=== PATIENT | male | born 1975 | race Caucasian/White ===

== ENCOUNTER 2020-11-11 00:14 | Emergency (ER) | payer SELFPAY ==
[~2020-11-11] VITALS: Ht 177 cm; Wt 91.0 kg
[2020-11-11] MEDS ORDERED: morphine INJ 10 MG/ML 1ML (SYR OR VIAL) IVP STA (00:53)
--- NOTE | 2020-11-11 00:59 | ED GU-Male ---
General Chief Complaint: - Urinary Stated Complaint: SCROTUM SWELLING/PAIN X 3-4 DAYS Nursing Triage Note: PT TO ED W/ C/O SCROTAL ET PENIS SWELLING ONSET X3 DAYS. PT REPORTS HE IS UNABLE TO PULL THE FORESKIN BACK ON HIS PENIS AT THIS TIME. WAS SEEN AT [facility] X2-3 DAYS AGO FOR CONSTIPATION OVER THE LAST MONTH. STATES WAS DX W/ ANAL FISSURES, PRESCRIBED PAIN MEDS, ABX ET SUPPOSITORIES. Source: patient, family Exam Limitations: no limitations History of Present Illness Date Seen by Provider: Nov 11, 2020 Time Seen by Provider: 00:42 Initial Comments Patient is a 45-year-old male who presents to the emergency department today with a chief complaint of increasing scrotal swelling and pain. Patient reports that he has been fighting constipation for about a month to a month and a half and was seen at [facility] in [place] 2-3 nights ago. He was diagnosed with anal fissures and did have a scrotal ultrasound that night. He was prescribed some antibiotics. He is advised to take [id number] MiraLAX for his constipation. Patient states that it has been for 5 days since he has had a bowel movement still and it hurts to have a bowel movement. Patient states that he has had difficulty urinating over the course of the last couple of days and the scrotum is significantly more swollen and red and painful today. He states that he feels like he has been running fever. He is a diabetic on insulin. He states he has been on insulin for about the last 4 years. He does not check his blood sugars at home. Patient states that he has been taking the pain medicine without any relief of symptoms. All other review of systems reviewed and negative except as stated above. Timing/Duration: week, getting worse Severity/Quality: severe, aching Location: scrotal Radiation: none Activities at Onset: none Modifying Factors: Improves With Analgesics; Worsens With Movement Associated Symptoms: nausea/vomiting Allergies and Home Medications Allergies Coded Allergies: No Known Drug Allergies (Unverified , 11/11/20) Patient Home Medication List Home Medication List Reviewed: Yes Review of Systems Review of Systems Constitutional: see HPI, chills, fever (Subjective) EENTM: no symptoms reported Respiratory: no symptoms reported Cardiovascular: no symptoms reported Gastrointestinal: no symptoms reported Genitourinary: pain, urgency, other (Scrotal swelling and erythema) Musculoskeletal: no symptoms reported Skin: no symptoms reported Psychiatric/Neurological: Anxiety All Other Systemes Reviewed Negative Unless Noted: Yes Past Rjmbfaj-Iyrysu-Kwxivo Hx Patient Social History Alcohol Use: Regular Use Alcohol Beverage of Choice: Beer Drug of Choice: METH Smoking Status: Current Everyday Smoker Type Used: Cigarettes Recent Infectious Disease Expo: No Physical Exam Vital Signs Vital Signs - First Documented 11/11/20 00:34 Temp 36.8 Pulse 114 Resp 20 B/P (MAP) 143/95 (111) Pulse Ox 98 O2 Delivery Room Air Capillary Refill : Less Than 3 Seconds Height, Weight, BMI Height: '" Weight: lbs. oz. kg; 29.00 BMI Method: General Appearance: WD/WN, mild distress HEENT: PERRL/EOMI Neck: full range of motion Cardiovascular: regular rate, rhythm Respiratory: lungs clear, normal breath sounds, no respiratory distress, no accessory muscle use Gastrointestinal: non tender, soft Rectal: deferred Male: other (Patient has significant scrotal swelling and edema and is very exquisitly tender to palpation; erythema does not extend into the perineum. There are no sores on the genitalia. Patient is circumcised. No penile discharge is noted I am unable to palpate the testicles independently of the swelling in the scrotum) Extremities: non-tender, normal inspection, no pedal edema Neurologic/Psychiatric: alert, normal mood/affect, oriented x 3 Skin: normal color, warm/dry Focused Exam Lactate Level 11/11/20 01:00: Lactic Acid Level 2.50*H Lactic Acid Level Laboratory Tests Test 11/11/20 01:00 Lactic Acid Level 2.50 MMOL/L (0.50-2.00) *H Progress/Results/Core Measures Suspected Sepsis Recent Fever Within 48 Hours: No Infection Criteria Present: None New/Unexplained Altered Menta: No Sepsis Screen: No Definite Risk SIRS Temperature: Pulse: 114 Respiratory Rate: 20 Laboratory Tests 11/11/20 01:00: White Blood Count 12.5H Blood Pressure 143 /95 Mean: 111 11/11/20 01:00: Lactic Acid Level 2.50*H Laboratory Tests 11/11/20 01:00: Creatinine 1.06, INR Comment 1.1, Platelet Count 386, Total Bilirubin 0.3 Results/Orders Lab Results Laboratory Tests Test 11/11/20 00:20 11/11/20 01:00 Range/Units Urine Color YELLOW Urine Clarity CLEAR Urine pH 5.5 5-9 Urine Specific [place] <=1.005 1.016-1.022 Urine Protein NEGATIVE NEGATIVE Urine Glucose (UA) 3+ H NEGATIVE Urine Ketones NEGATIVE NEGATIVE Urine Nitrite NEGATIVE NEGATIVE Urine Bilirubin NEGATIVE NEGATIVE Urine Urobilinogen 0.2 < = 1.0 MG/DL Urine Leukocyte Esterase TRACE H NEGATIVE Urine RBC (Auto) TRACE-I NEGATIVE Urine RBC 5-10 H /HPF Urine WBC 25-50 H /HPF Urine Squamous Epithelial Cells 2-5 /HPF Urine Crystals NONE /LPF Urine Bacteria TRACE /HPF Urine Casts NONE /LPF Urine Mucus NEGATIVE /LPF Urine Culture Indicated YES White Blood Count 12.5 H 4.3-11.0 10^3/uL Red Blood Count 4.57 4.30-5.52 10^6/uL Hemoglobin 14.6 13.3-17.7 g/dL Hematocrit 42 40-54 % Mean Corpuscular Volume 92 80-99 fL Mean Corpuscular Hemoglobin 32 25-34 pg Mean Corpuscular Hemoglobin Concent 35 32-36 g/dL Red Cell Distribution Width 12.6 10.0-14.5 % Platelet Count 386 130-400 10^3/uL Mean Platelet Volume 10.3 9.0-12.2 fL Immature Granulocyte % (Auto) 3 % Neutrophils (%) (Auto) 73 42-75 % Lymphocytes (%) (Auto) 14 12-44 % Monocytes (%) (Auto) 10 0-12 % Eosinophils (%) (Auto) 0 0-10 % Basophils (%) (Auto) 1 0-10 % Neutrophils # (Auto) 9.1 H 1.8-7.8 10^3/uL Lymphocytes # (Auto) 1.7 1.0-4.0 10^3/uL Monocytes # (Auto) 1.2 H 0.0-1.0 10^3/uL Eosinophils # (Auto) 0.0 0.0-0.3 10^3/uL Basophils # (Auto) 0.1 0.0-0.1 10^3/uL Immature Granulocyte # (Auto) 0.3 H 0.0-0.1 10^3/uL Prothrombin Time 14.4 12.2-14.7 SEC INR Comment 1.1 0.8-1.4 Activated Partial Thromboplast Time 31 24-35 SEC Sodium Level 130 L 135-145 MMOL/L Potassium Level 4.3 3.6-5.0 MMOL/L Chloride Level 95 L 98-107 MMOL/L Carbon Dioxide Level 21 21-32 MMOL/L Anion Gap 14 5-14 MMOL/L Blood Urea Nitrogen 10 7-18 MG/DL Creatinine 1.06 0.60-1.30 MG/DL Estimat Glomerular Filtration Rate > 60 BUN/Creatinine Ratio 9 Glucose Level 511 *H 70-105 MG/DL Lactic Acid Level 2.50 *H 0.50-2.00 MMOL/L Calcium Level 9.1 8.5-10.1 MG/DL Corrected Calcium 9.5 8.5-10.1 MG/DL Total Bilirubin 0.3 0.1-1.0 MG/DL Aspartate Amino Transf (AST/SGOT) 44 H 5-34 U/L Alanine Aminotransferase (ALT/SGPT) 87 H 0-55 U/L Alkaline Phosphatase 135 40-136 U/L C-Reactive Protein High Sensitivity 13.77 H 0.00-0.50 MG/DL Total Protein 7.4 6.4-8.2 GM/DL Albumin 3.5 3.2-4.5 GM/DL My Orders Orders - OBED COSTA MD Cbc With Automated Diff (11/11/20 00:53) Comprehensive Metabolic Panel (11/11/20 00:53) Blood Culture (11/11/20 00:53) Urinalysis (11/11/20 00:53) Urine Culture (11/11/20 00:53) Protime With Inr (11/11/20 00:53) Partial Thromboplastin Time (11/11/20 00:53) Ed Iv/Invasive Line Start (11/11/20 00:53) Ed Iv/Invasive Line Start (11/11/20 00:53) Vital Signs Adult Sepsis Patie Q15M (11/11/20 00:53) O2 (11/11/20 00:53) Remove Rings In Anticipation O (11/11/20 00:53) Lactic Acid Analyzer (11/11/20 00:53) Hs C Reactive Protein (11/11/20 00:53) Lorazepam Injection (Ativan Injection) (11/11/20 01:00) Morphine Injection (Morphine Injection (11/11/20 00:53) Ns Iv 1000 Ml (Sodium Chloride 0.9%) (11/11/20 01:00) Ct Abdomen/Pelvis W (11/11/20 00:59) Nicotine Patch (Nicoderm Patch) (11/11/20 01:15) Neis Louis Dna Urine Test (11/11/20 01:15) Chlamydia Trachomatis Urine (11/11/20 01:15) Iohexol Injection (Omnipaque 350 Mg/Ml 1 (11/11/20 02:15) Received Contrast (Hold Metformin- Contr (11/11/20 02:15) Sodium Chloride Flush (Catheter Flush Sy (11/11/20 02:15) Ns (Ivpb) (Sodium Chloride 0.9% Ivpb Bag (11/11/20 02:15) Ceftriaxone (Rocephin) (11/11/20 03:15) Medications Given in ED Current Medications Medications Dose Ordered Sig/Leigh Route Start Time Stop Time Status Last Admin Dose Admin Iohexol 100 ml ONCE ONCE IV 11/11/20 02:15 11/11/20 02:16 DC 11/11/20 02:03 100 ML Lorazepam 1 mg ONCE ONCE IVP 11/11/20 01:00 11/11/20 01:01 DC 11/11/20 01:14 1 MG Nicotine 21 mg ONCE ONCE TD 11/11/20 01:15 11/11/20 01:16 DC 11/11/20 01:29 21 MG Sodium Chloride 10 ml NEEDED PRN IV 11/11/20 02:15 11/11/20 02:04 10 ML Sodium Chloride 100 ml ONCE ONCE IV 11/11/20 02:15 11/11/20 02:16 DC 11/11/20 02:04 80 ML Vital Signs/I&O 11/11/20 00:34 Temp 36.8 Pulse 114 Resp 20 B/P (MAP) 143/95 (111) Pulse Ox 98 O2 Delivery Room Air Capillary Refill : Less Than 3 Seconds Blood Pressure Mean: 111 Progress Note : Time: 03:13 Progress Note I had a long discussion with Johnny regarding the infection and inflammation in his scrotum. I advised him that his CT showed no evidence of drainable abscess in the scrotum. He has "moderate diffuse scrotal swelling which could be further evaluated by ultrasound if clinically warranted" according to the radiologist. I was able to obtain records from [facility] at [place] which showed evidence of orchitis and epididymitis. Patient was treated with Rocephin and azithromycin in the emergency department at [facility]. He was also given doxycycline. Patient has significantly elevated blood sugar and elevated lactic acid and adamantly declines admission at this time. He has been treated in the emergency department with a liter of normal saline. His vitals are stable. He is not tachycardic. CT scan is reassuring. I do not believe that he needs another repeat ultrasound. His ultrasound on 11/08/20 showed no evidence of torsion and good vascular flow. Showed right-sided epididymal orchitis, bilateral hydroceles right greater than left and a 9 mm right epididymal cyst. I did convey to the patient that infections in the scrotum and groin in diabetics can proceed very quickly to life-threatening infections. I am going to give the patient another round of Rocephin here in the emergency department this time 1 g. I have advised that he follow-up tomorrow with [facility]. I am going to start him on Keflex as an outpatient. I have given him good return precautions. He again adamantly declines admission. I suspect this is due to his ongoing tobacco use and his methamphetamine addiction. I told him that I do not believe it is shepard to sign out however the patient does not want to stay in the hospital. Departure Impression Primary Impression: Epididymo-orchitis without abscess Additional Impressions: Hyperglycemia due to type 1 diabetes mellitus Elevated lactic acid level Disposition: 01 HOME, SELF-CARE Condition: Stable Departure-Patient Inst. Decision time for Depature: 03:34 Referrals: [facility],LOCAL PHYSICIAN (PCP) Primary Care Physician Patient Instructions: Epididymitis (DC) Add. Discharge Instructions: Continue to take the antibiotics, both doxycycline and Keflex as prescribed. You can apply ice packs to the groin for swelling. Please follow-up with [facility] tomorrow. Return to the emergency room for any worsening swelling, pain, fever or other emergent concerning symptoms. Take your insulin daily as scheduled. Follow-up with Dr. Radha Jimenez. I have sent a copy of your chart to her. Scripts Hydrocodone/Acetaminophen (Hydrocodone-Acetamin 5-325 mg) 1 Each Tablet 1 TAB PO Q6H PRN for PAIN-MODERATE (5-7), #20 TAB Prov: OBED COSTA MD 11/11/20 Cephalexin (Cephalexin) 500 Mg Tablet 500 MG PO TID, #30 TAB Prov: OBED COSTA MD 11/11/20 OBED COSTA MD Nov 11, 2020 00:59
[2020-11-11] MEDS ORDERED: LORazepam INJ 2 MG/ML (ATIVAN) VIAL IVP ONE (01:00)
[2020-11-11] MEDS ORDERED: NS IV 1000 ML 1,000 ML IV SCH (01:00)
[2020-11-11 01:01] LABS: BILIRUBIN,URINE NEGATIVE (NEGATIVE); CLARITY,URINE CLEAR; COLOR,URINE YELLOW; GLUCOSE, URINE (UA) 3+ (NEGATIVE); KETONES,URINE NEGATIVE (NEGATIVE); LEUKOCYTE ESTERASE ,URINE TRACE (NEGATIVE); NITRITE,URINE NEGATIVE (NEGATIVE); PH,URINE 5.5 (5-9); PROTEIN,URINE NEGATIVE (NEGATIVE)
[2020-11-11 01:08] LABS: BACTERIA,URINE TRACE /HPF; WBC,URINE 25-50 /HPF
[2020-11-11 01:09] LABS: BASOPHILS # (AUTO) 0.1 10^3/uL (0.0-0.1); BASOPHILS % (AUTO) 1 % (0-10); EOSINOPHILS % (AUTO) 0 % (0-10); HEMATOCRIT 42 % (40-54); HEMOGLOBIN 14.6 g/dL (13.3-17.7); LYMPHOCYTES # (AUTO) 1.7 10^3/uL (1.0-4.0); LYMPHOCYTES % (AUTO) 14 % (12-44); MEAN CORPUSCULAR HEMOGLOBIN 32 pg (25-34); MEAN CORPUSCULAR HGB CONC 35 g/dL (32-36); MEAN CORPUSCULAR VOLUME 92 fL (80-99); MEAN PLATELET VOLUME 10.3 fL (9.0-12.2); MONOCYTES # (AUTO) 1.2 10^3/uL (0.0-1.0); MONOCYTES % (AUTO) 10 % (0-12); NEUTROPHILS # (AUTO) 9.1 10^3/uL (1.8-7.8); NEUTROPHILS % (AUTO) 73 % (42-75); PLATELET COUNT 386 10^3/uL (130-400); WHITE BLOOD COUNT 12.5 10^3/uL (4.3-11.0)
[2020-11-11] MEDS ORDERED: NICOTINE 21 MG (NICODERM) PATCH TD ONE (01:15)
[2020-11-11 01:22] LABS: INR 1.1 (0.8-1.4); PROTHROMBIN TIME PATIENT 14.4 SEC (12.2-14.7)
[2020-11-11 01:23] LABS: ALBUMIN 3.5 GM/DL (3.2-4.5); CHLORIDE 95 MMOL/L (98-107); POTASSIUM 4.3 MMOL/L (3.6-5.0); SODIUM 130 MMOL/L (135-145)
[2020-11-11 01:25] LABS: CALCIUM 9.1 MG/DL (8.5-10.1)
[2020-11-11 01:26] LABS: TOTAL PROTEIN 7.4 GM/DL (6.4-8.2)
[2020-11-11 01:27] LABS: CARBON DIOXIDE 21 MMOL/L (21-32)
[2020-11-11 01:28] LABS: BILIRUBIN,TOTAL 0.3 MG/DL (0.1-1.0); GLUCOSE 511 MG/DL (70-105)
[2020-11-11 01:29] LABS: ALKALINE PHOSPHATASE 135 U/L (40-136); CREATININE SERUM 1.06 MG/DL (0.60-1.30); GFR ESTIMATED > 60
[2020-11-11 01:31] LABS: BUN/CREATININE RATIO 9
[2020-11-11 01:32] LABS: ALANINE AMINOTRANSFERASE 87 U/L (0-55)
[2020-11-11] MEDS ORDERED: NS 100 ML (IVPB) BAG IV ONE (02:15)
[2020-11-11] MEDS ORDERED: HOLD METFORMIN - RECEIVED CONTRAST 20 ML VIAL IV SCH (02:15)
[2020-11-11] MEDS ORDERED: CATHETER FLUSH 10 ML SYR IV PRN (02:15)
[2020-11-11] MEDS ORDERED: IOHEXOL 350 MG/ML 100 ML (OMNIPAQUE 350) VIAL IV ONE (02:15)
[2020-11-11] MEDS ORDERED: cefTRIAXone 1,000 MG in WATER (STERILE) FOR INJECTION 10 ML IV ONE (03:15)
[2020-11-11] MEDS ORDERED: CEPH500T PO (03:35)
[2020-11-11] MEDS ORDERED: ACHD5005 PO (03:35)
[2020-11-11 03:50] VITALS: BP 116/86
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
== END 2020-11-11 03:50 | disposition home or self-care (01) ==
LOC: EDUNIT# 00:14 → ER 00:18
DX: N45.3 Epididymo-orchitis (principal); E10.65 Type 1 diabetes mellitus with hyperglycemia; R74.02 Elevation of levels of lactic acid dehydrogenase [LDH]; F41.9 Anxiety disorder, unspecified; F17.210 Nicotine dependence, cigarettes, uncomplicated
CPT/HCPCS: 36415; 74177; 80053; 81000; 83605; 85025; 85610; 85730; 86141; 87040; 87088; 87491; 87591